=== PATIENT | male | born 1940 | race Caucasian/White ===

== ENCOUNTER → 2019-11-08 12:53 | Outpatient (BNVA) | payer MEDICARE, OTHER, SELFPAY | PROVIDERS: Family Provider Urology; PCP Physician Assistant Medical; Visit Provider Nurse Practitioner Family | DX: N40.0 Benign prostatic hyperplasia without lower urinary tract symptoms (principal); N40.1 Benign prostatic hyperplasia with lower urinary tract symptoms | CPT/HCPCS: 81001 ==

== ENCOUNTER → 2020-01-15 08:40 | Outpatient (BNVA) | payer MEDICARE, OTHER, SELFPAY | PROVIDERS: Family Provider Urology; PCP Physician Assistant Medical; Visit Provider Nurse Practitioner Family | DX: N40.1 Benign prostatic hyperplasia with lower urinary tract symptoms (principal) | CPT/HCPCS: 81003 ==

== ENCOUNTER → 2020-05-21 07:57 | Outpatient (BNVA) | payer MEDICARE, OTHER, SELFPAY | PROVIDERS: Family Provider Urology; PCP Physician Assistant Medical; Visit Provider Urology | DX: N40.1 Benign prostatic hyperplasia with lower urinary tract symptoms (principal) | CPT/HCPCS: 81003 ==

== ENCOUNTER → 2021-06-10 09:22 | Outpatient (BNVA) | payer MEDICARE, OTHER, SELFPAY | PROVIDERS: Family Provider Urology; PCP Physician Assistant Medical; Visit Provider Nurse Practitioner Family | DX: N40.1 Benign prostatic hyperplasia with lower urinary tract symptoms (principal) | CPT/HCPCS: 81003 ==

== ENCOUNTER → 2022-06-10 08:42 | Outpatient (BNVA) | payer MEDICARE, OTHER, SELFPAY | PROVIDERS: Family Provider Urology; Visit Provider Urology | DX: N40.1 Benign prostatic hyperplasia with lower urinary tract symptoms (principal); N52.9 Male erectile dysfunction, unspecified | CPT/HCPCS: 51741; 51798; 81003; 99213 ==

== ENCOUNTER → 2022-07-27 09:33 | Outpatient (BNVA) | payer MEDICARE, OTHER, SELFPAY | PROVIDERS: Family Provider Urology; PCP Nurse Practitioner Family; Visit Provider Surgery | DX: R42 Dizziness and giddiness (principal) | CPT/HCPCS: 99203 ==

== ENCOUNTER → 2022-08-25 13:43 | Outpatient (BNVA) | payer MEDICARE, OTHER, SELFPAY | PROVIDERS: Family Provider Urology; PCP Nurse Practitioner Family; Visit Provider Otolaryngology | DX: I95.1 Orthostatic hypotension (principal); H81.10 Benign paroxysmal vertigo, unspecified ear | CPT/HCPCS: 99203 ==

== ENCOUNTER 2022-09-21 15:16 | Outpatient (RCR) | payer MEDICARE, OTHER, SELFPAY | END 2022-09-24 23:59 | disposition home or self-care (01) | LOC: SPT 15:16 | PROVIDERS: PCP Nurse Practitioner Family; Visit Provider Otolaryngology | DX: H81.11 Benign paroxysmal vertigo, right ear (principal) | CPT/HCPCS: 95992; 97161 ==

== ENCOUNTER 2023-12-12 10:45 | Outpatient (CLI) | payer MEDICARE, OTHER, SELFPAY ==
--- NOTE | 2023-12-12 10:52 | MR_ITS ---
WS: [id number] MRI HEAD WITH CONTRAST WITH ATTENTION TO THE INTERNAL AUDITORY CANALS TECHNIQUE: Sagittal T1, T2 axial, T2 axial flair, axial susceptibility weighted imaging, axial diffus ion weighted images, and coronal T2 images were obtained. Pre and post T1 axial and post T1 coronal i mages. ADC and FSPGR images. Post gadolinium images with attention to the internal auditory canals. A xial fiesta imaging. CLINICAL INFORMATION: DIZZINESS AND GIDDINESS COMPARISON: None. FINDINGS: No evidence of restricted diffusion to suggest acute ischemia. Ventricular system and basal cisterns are patent. Mild small vessel changes. Moderate parenchymal volume loss. Tiny chronic lacunar infarct LEFT cerebellum. Normal vascular flow voids at the skull base. No extra-axial fluid collections. No evidence of mass or mass effect. Paranasal sinuses are well aerated. Normal posterior nasopharynx. Mi ld mucosal thickening in the LEFT mastoid air cells. No suspicious foci of hemosiderin on the susceptibility weighted images. Normal optic chiasm and pituitary infundibulum. Mild symmetric atrophy temporal lobes and hippocampal formations. Proximal 7th and 8th cranial nerves are normal in appearance. Normal trigeminal nerve ro ot entry zones. No evidence of enhancing IAC or CP angle mass. MR/MR iac's wo/w con* [id number] IMPRESSION: 1. No evidence of enhancing IAC or CP angle mass. Normal trigeminal nerve root entry zones. 2. Mild small vessel changes with moderate parenchymal volume loss. 3. Mild mucosal thickening LEFT mastoid air cells. Paranasal sinuses are well aerated. 4. Tiny chronic lacunar infarct LEFT cerebellum. 5. No other suspicious findings.
[2023-12-12] MEDS: gadobenate dimeglumine 20 mL vial IV (11:45)
== END 2023-12-12 10:46 | disposition home or self-care (01) ==
LOC: RAD 10:46
PROVIDERS: PCP Nurse Practitioner Family; Visit Provider Otolaryngology
DX: H91.8X3 Other specified hearing loss, bilateral (principal); R42 Dizziness and giddiness; G31.89 Other specified degenerative diseases of nervous system
CPT/HCPCS: 70553

== ENCOUNTER 2023-12-27 06:30 | Outpatient (RCR) | payer MEDICARE, OTHER, SELFPAY | END 2024-01-26 23:59 | disposition home or self-care (01) | LOC: WPT 06:30 | PROVIDERS: Visit Provider Otolaryngology | DX: R42 Dizziness and giddiness (principal) | CPT/HCPCS: 97161 ==